=== PATIENT | female | born 1975 ===

== ENCOUNTER 2021-05-30 09:00 | Emergency (ER) | payer OTHER ==
--- NOTE | 2021-05-30 09:46 | ED ---
General Adult HPI - General Chief complaint: Recheck/Abnormal Lab/Rx Stated complaint: Abnormal Labs/Recheck Time Seen by Provider: 05/30/21 09:22 Source: patient, RN notes reviewed, old records reviewed Mode of arrival: ambulatory Limitations: no limitations - History of Present Illness Initial comments: 46-year-old female with no significant past medical history presenting for evaluation of anemia. Patient had received a physical exam yesterday with routine blood work and was noted to have a hemoglobin of 6.3. The primary care physician had called the patient to indicate that she should present to the emergency department for evaluation. Patient has no complaints, she feels fine. She states that she has had very heavy menstrual cycles for the past several years and she has been seen by gynecology she has had trial with control but her periods have remained heavy. She cannot tolerate oral iron secondary to constipation. - Related Data Previous Rx's Medication Instructions Recorded Docusate [Colace] 100 mg PO BID #60 cap 05/30/21 Ferrous Sulfate [Feosol] 325 mg PO BID #60 tab 05/30/21 Allergies Allergy/AdvReac Type Severity Reaction Status Date / Time No Known Allergies Allergy Verified 05/30/21 10:02 Review of Systems ROS Statement: Those systems with pertinent positive or pertinent negative responses have been documented in the HPI. ROS Other: All systems not noted in ROS Statement are negative. Past Medical History Past Medical History: No Reported History History of Any Multi-Drug Resistant Organisms: None Reported Additional Past Surgical History / Comment(s): uterine ablation Past Psychological History: No Psychological Hx Reported Smoking Status: Never smoker Past Alcohol Use History: None Reported Past Drug Use History: None Reported General Exam Limitations: no limitations General appearance: alert, in no apparent distress Head exam: Present: atraumatic, normocephalic Eye exam: Present: normal appearance, PERRL ENT exam: Present: normal exam Neck exam: Present: normal inspection. Absent: tenderness, meningismus Respiratory exam: Present: normal lung sounds bilaterally. Absent: respiratory distress, wheezes Cardiovascular Exam: Present: regular rate, normal rhythm GI/Abdominal exam: Present: soft. Absent: distended, tenderness, guarding Extremities exam: Present: normal inspection, normal capillary refill. Absent: pedal edema Neurological exam: Present: alert, oriented X3, CN II-XII intact. Absent: motor sensory deficit Psychiatric exam: Present: normal affect, normal mood Skin exam: Present: warm, dry, intact. Absent: cyanosis, diaphoretic, pallor Course Vital Signs 05/30/21 09:08 Temperature 98.2 F Pulse Rate 86 Respiratory 18 Rate Blood Pressure 129/85 O2 Sat by Pulse 100 Oximetry EKG Findings - EKG Comments: EKG Findings:: EKG: Normal sinus rhythm, low voltage, rate of 80, KS interval 132, QRS duration 74, QTC 442, no ST segment elevation. Medical Decision Making - Medical Decision Making 46-year-old female sent in for evaluation of anemia. Likely chronic anemia. She has a hemoglobin 7.1 which is microcytic. She states she feels totally fine she has stable vitals no other complaints. She admits to heavy menstrual cycles. She will be started on iron, Colace, given both primary and gynecologi obed referral. - Lab Data Result diagrams: 05/30/21 09:37 05/30/21 09:37 Lab Results 05/30/21 05/30/21 05/30/21 Range/Units 09:37 09:37 09:37 WBC 4.8 (3.8-10.6) k/uL RBC 4.60 (3.80-5.40) m/uL Hgb 7.1 L (11.4-16.0) gm/dL Hct 25.3 L (34.0-46.0) % MCV 55.0 L (80.0-100.0) fL MCH 15.4 L (25.0-35.0) pg MCHC 28.0 L (31.0-37.0) g/dL RDW 20.1 H (11.5-15.5) % Plt Count 172 (150-450) k/uL MPV 7.9 Hypochromasia Marked Poikilocytosis Moderate Anisocytosis Moderate Microcytosis Marked PT 10.1 (9.0-12.0) sec INR 0.9 (<1.2) APTT 20.5 L (22.0-30.0) sec Sodium 136 L (137-145) mmol/L Potassium 4.1 (3.5-5.1) mmol/L Chloride 104 (98-107) mmol/L Carbon Dioxide 20 L (22-30) mmol/L Anion Gap 12 mmol/L BUN 12 (7-17) mg/dL Creatinine 0.49 L (0.52-1.04) mg/dL Est GFR (CKD-EPI)AfAm >90 (>60 ml/min/1.73 sqM) Est GFR (CKD-EPI)NonAf >90 (>60 ml/min/1.73 sqM) Glucose 128 H (74-99) mg/dL Calcium 9.6 (8.4-10.2) mg/dL Magnesium 1.8 (1.6-2.3) mg/dL Total Bilirubin 0.5 (0.2-1.3) mg/dL AST 19 (14-36) U/L ALT 12 (4-34) U/L Alkaline Phosphatase 49 (38-126) U/L Total Protein 7.5 (6.3-8.2) g/dL Albumin 4.5 (3.5-5.0) g/dL Blood Type Blood Type Confirm Blood Type Recheck Bld Type Recheck Status Antibody Screen Spec Expiration Date 05/30/21 05/30/21 Range/Units 09:37 09:55 WBC (3.8-10.6) k/uL RBC (3.80-5.40) m/uL Hgb (11.4-16.0) gm/dL Hct (34.0-46.0) % MCV (80.0-100.0) fL MCH (25.0-35.0) pg MCHC (31.0-37.0) g/dL RDW (11.5-15.5) % Plt Count (150-450) k/uL MPV Hypochromasia Poikilocytosis Anisocytosis Microcytosis PT (9.0-12.0) sec INR (<1.2) APTT (22.0-30.0) sec Sodium (137-145) mmol/L Potassium (3.5-5.1) mmol/L Chloride (98-107) mmol/L Carbon Dioxide (22-30) mmol/L Anion Gap mmol/L BUN (7-17) mg/dL Creatinine (0.52-1.04) mg/dL Est GFR (CKD-EPI)AfAm (>60 ml/min/1.73 sqM) Est GFR (CKD-EPI)NonAf (>60 ml/min/1.73 sqM) Glucose (74-99) mg/dL Calcium (8.4-10.2) mg/dL Magnesium (1.6-2.3) mg/dL Total Bilirubin (0.2-1.3) mg/dL AST (14-36) U/L ALT (4-34) U/L Alkaline Phosphatase (38-126) U/L Total Protein (6.3-8.2) g/dL Albumin (3.5-5.0) g/dL Blood Type A Negative Blood Type Confirm A Negative Blood Type Recheck No Previous Record Bld Type Recheck Status CABO Indicated Antibody Screen NEGATIVE Spec Expiration Date 06/02/20212336 Disposition Clinical Impression: Anemia Disposition: HOME SELF-CARE Condition: Good Instructions (If sedation given, give patient instructions): Iron Rich Diet (ED), Anemia (ED) Prescriptions: Docusate [Colace] 100 mg PO BID #60 cap Ferrous Sulfate [Feosol] 325 mg PO BID #60 tab Is patient prescribed a controlled substance at d/c from ED?: No Referrals: Piotr Hernandez MD [Primary Care Provider] - 1-[address] DO [Doctor of Osteopathic Medicine] - 1-2 days Time of Disposition: 10:48
[2021-05-30 09:58] LABS: Anisocytosis Moderate; Basophils % (A) 1 %; Eosinophils % (A) 1 %; HCT 25.3 % (34.0-46.0); HGB 7.1 gm/dL (11.4-16.0); Hypochromasia Marked; Lymphocytes # (A) 1.3 k/uL (1.0-4.8); Lymphocytes % (A) 27 %; MCH 15.4 pg (25.0-35.0); Mean Platelet Volume 7.9; Microcytosis Marked; Monocytes # (A) 0.2 k/uL (0-1.0); Monocytes % (A) 4 %; Neutrophils # (A) 3.1 k/uL (1.3-7.7); Neutrophils % (A) 65 %; Platelet Count 172 k/uL (150-450); Poikilocytosis Moderate; RDW 20.1 % (11.5-15.5); WBC 4.8 k/uL (3.8-10.6)
[2021-05-30 10:00] LABS: ALT 12 U/L (4-34); AST 19 U/L (14-36); African American GFR (CKD) >90 (>60 ml/min/1.73 sqM); Albumin 4.5 g/dL (3.5-5.0); Alkaline Phosphatase 49 U/L (38-126); Anion Gap 12 mmol/L; Blood Urea Nitrogen 12 mg/dL (7-17); Calcium 9.6 mg/dL (8.4-10.2); Carbon Dioxide 20 mmol/L (22-30); Chloride 104 mmol/L (98-107); Glucose 128 mg/dL (74-99); Magnesium 1.8 mg/dL (1.6-2.3); Non-African American GFR(CKD) >90 (>60 ml/min/1.73 sqM); Potassium 4.1 mmol/L (3.5-5.1); Sodium 136 mmol/L (137-145); Total Bilirubin 0.5 mg/dL (0.2-1.3); Total Protein 7.5 g/dL (6.3-8.2)
[2021-05-30 10:05] LABS: INR 0.9 (<1.2); Prothrombin Time 10.1 sec (9.0-12.0)
[2021-05-30 10:20] LABS: Partial Thromboplastin Time 20.5 sec (22.0-30.0)
[2021-05-30 10:57] LABS: Target Cells Present
[2021-05-30 10:58] VITALS: BP 127/74; PULSE 83; RESP 16; TEMP 99.4
== END 2021-05-30 11:00 | disposition home or self-care (01) ==
LOC: EC 09:00
DX: D64.9 Anemia, unspecified (principal)
CPT/HCPCS: 36415; 80053; 83735; 85025; 85610; 85730; 86850; 86900; 86901; 93005; 99284